=== PATIENT | female | born 2005 ===

== ENCOUNTER 2024-03-25 19:32 | Emergency (ER) | payer OTHER ==
[~2024-03-25] VITALS: Ht 154.9 cm; Wt 81.8 kg
[2024-03-25 19:53] VITALS: TEMP 99.4
[2024-03-25] MEDS: KETOROLAC TROMETHAMINE 30 MG/ML VIAL IM ONE (20:56)
[2024-03-25] MEDS: LIDOCAINE 5% TRANSDERMAL PATCH TD ONE (20:57)
[2024-03-25 22:41] VITALS: BP 128/68; PULSE 109; RESP 16; O2SAT 100
== END 2024-03-25 23:09 | disposition home or self-care (01) ==
LOC: EMS 19:32
DX: S43.402A Unspecified sprain of left shoulder joint, initial encounter (principal); S16.1XXA Strain of muscle, fascia and tendon at neck level, initial encounter; V87.7XXA Person injured in collision between other specified motor vehicles (traffic), initial encounter; Y93.89 Activity, other specified; Y92.89 Other specified places as the place of occurrence of the external cause; Y99.8 Other external cause status
CPT/HCPCS: 99283; 93005; 96372; J1885